=== PATIENT | female | born 1980 | race Caucasian/White ===

== ENCOUNTER 2017-12-18 11:46 | Emergency (ER) | payer MEDICAID ==
--- NOTE | 2017-12-18 12:03 | Emergency Department Record ---
History of Present Illness - General Chief complaint: complication Stated complaint: NEEDS LAB WORK Time Seen by Provider: 12/18/17 11:47 Source: Patient Mode of Arrival: Ambulatory Limitations: No limitations - History of Present Illness Initial comments: 37 yo female presents to the ED for a repeat HCG level. She is 7 weeks with her first OB intake appointment on . She has had light spotting since Sunday. No significant pain. She was seen at [facility] on 12/15. Her US demonstrated a SLIUP at 6w5d with HR 125. She is Rh positive. Her quant was 6405. She was instructed to have a repeat HCG level prior to her follow up. She does not have a PCP so she came to the ED. She was trichomonas positive and is being treated. MD Complaint: Vaginal bleeding -: Days(s) (4) Radiation: None Quality: Aching Consistency: Intermittent Improves with: None Worsens with: None Associated symptoms: Denies other symptoms Vaginal bleeding: Light - Related Data Home Medications Medication Instructions Recorded Confirmed Last Taken Cephalexin [Cephalexin] 500 mg PO BID 12/18/17 12/18/17 Unknown Pnv,Calcium 72/Iron/Folic Acid 1 tab PO DAILY 12/18/17 12/18/17 Unknown [Pnv Plus Multivit Tab] Allergies Allergy/AdvReac Type Severity Reaction Status Date / Time No Known Drug Allergies Allergy Verified 12/18/17 12:02 Review of Systems Constitutional: Denies: Chills, Fever, Malaise, Weakness Eyes: Denies: Eye discharge ENT: Denies: Congestion, Throat pain Respiratory: Denies: Cough Cardiovascular: Denies: Chest pain, Syncope Endocrine: Denies: Fatigue Gastrointestinal: Denies: Abdominal pain, Diarrhea, Nausea, Vomiting Genitourinary: Reports: As per HPI, Abnormal menses. Denies: Discharge, Dyspareunia, Dysuria, Frequency, Hematuria, Incontinence, Retention, Urgency Musculoskeletal: Denies: Arthralgia, Back pain, Neck pain Skin: Denies: Bruising, Change in color, Rash Neurological: Denies: Confusion, Headache Psychiatric: Denies: Anxiety Hematological/Lymphatic: Denies: Blood Clots, Easy bleeding, Easy bruising Past Medical History - SOCIAL HISTORY Smoking Status: Light tobacco smoker (<10/day) Drug Use Detail:: Marijuana - RESPIRATORY Hx Respiratory Disorders: No - CARDIOVASCULAR Hx Cardio Disorders: No - NEURO Hx Neuro Disorders: No - GI Hx GI Disorders: No - Hx Genitourinary Disorders: Yes Hx UTI: Yes - ENDOCRINE Hx Endocrine Disorders: No - MUSCULOSKELETAL Hx Musculoskeletal Disorders: No - PSYCH Hx Psych Problems: No - HEMATOLOGY/ONCOLOGY Hx Hematology/Oncology Disorders: No Physical Exam - General General Appearance: Alert, Oriented x3, Cooperative, No acute distress Limitations: No limitations - Head Head exam: Atraumatic, Normal inspection - Eye Eye exam: Normal appearance - ENT ENT exam: Normal exam Ear exam: Normal external inspection Nasal Exam: Normal inspection Mouth exam: Normal external inspection - Neck Neck exam: Normal inspection - Respiratory Respiratory exam: Normal lung sounds bilaterally. negative: Respiratory distress - Cardiovascular Cardiovascular Exam: Regular rate, Normal rhythm, Normal heart sounds - GI/Abdominal GI/Abdominal exam: Soft. negative: Distended, Guarding, Rebound, Rigid, Tenderness - Rectal Rectal exam: Deferred - exam: Deferred - Extremities Extremities exam: Normal inspection, Full ROM, Normal capillary refill. negative: Tenderness - Back Back exam: Denies: CVA tenderness (R), CVA tenderness (L) - Neurological Neurological exam: Alert, Oriented X3 - Psychiatric Psychiatric exam: Normal affect, Normal mood - Skin Skin exam: Dry, Intact, Normal color, Warm Course - Reevaluation(s) Reevaluation #1: [facility] was used to obtained [facility] records. See [facility] for details of those results She states she is here only to have a repeat HCG. She is otherwise doing well, very mild occasional spotting. She has follow up on . 12/18/17 12:02 The patient passed a clot in the toilet that appeared to be products of conception US was ordered I explained that given she had an IUP on 12/15 if none seen then likely this was a miscarriage. 12/18/17 13:28 Repeat quant is 4766 down from 6405 on 12/1512/18/17 13:33 US reviewed. No IUP Likely miscarriage given IUP on US 3 days prior and quant dropped to 4766 The pain and bleeding are mild at this time and controlled She was advised for follow up with her OB this week as scheduled. 12/18/17 13:58 Disposition Disposition: Discharge Clinical Impression: Miscarriage Disposition: Home, Self-Care Condition: (1) Good Instructions: Miscarriage (ED) Additional Instructions: Be seen immediately if worse, heavy bleeding or any new concerns Follow up with your test results and ultrasound Forms: Patient Portal Access Time of Disposition: 13:58 Quality - Quality Measures Quality Measures: N/A - Blood Pressure Screening Does Patient Have Any of the Following: No Blood Pressure Classification: Hypertensive Reading Systolic Measurement: 132 Diastolic Measurement: 95 Screening for High Blood Pressure: < Pre-Hypertensive BP, F/U Documented > [ G8950] Pre-Hypertensive Follow-up Interventions: Referral to alternative/primary care provider.
--- NOTE | 2017-12-20 07:29 | ULTRASOUND REPORT ---
EXAM: EMERGENCY PELVIC FIRST TRIMESTER OB ULTRASOUND HISTORY: SEVEN WEEKS , STARTED SPOTTING ON SUNDAY AND THEN PAIN AND CRAMPING THIS MORNING, CLOT IN TOILET TODAY. TECHNIQUE: Real-time ultrasound examination of the pelvis was performed utilizing transabdominal approach. The patient declined to undergo a transvaginal. Comparison: None. FINDINGS: TRANSABDOMINAL PELVIC ULTRASOUND: The uterus is somewhat poorly seen in this unprepped patient with no distended urinary bladder to act as a sonic window. The endometrial stripe is measured at about 1.3 cm. The uterus itself measures about 4.2 cm in AP x 4.7 cm in transverse diameters x 8.4 cm in length. No intrauterine fluid collection seen, and in particular, no recognizable intrauterine gestational sac, pole, yolk sac, or cardiac flicker identified within the uterus. Neither ovary confidently identified in the transabdominal approach. No adnexal mass seen and no free fluid evident. Findings presumably represent incomplete spontaneous given the history , although sonographic findings themselves are nonspecific. The lack of identification of an intrauterine gestational sac can also be seen in the presence of a very early IUP not yet sonographically visible, or ectopic . Consequently close clinical follow-up, perhaps with quantitative serial serum HCG determinations, is suggested. IMPRESSION: 1. LIMITED STUDY DESCRIBED ABOVE. 2. NO INTRAUTERINE IDENTIFIED. 3. NO ADNEXAL MASS OR FREE FLUID IDENTIFIED. THE OVARIES ARE NOT CLEARLY SEEN. JOB NUMBER: [id number] MTDD
== END 2017-12-18 14:11 | disposition home or self-care (01) ==
LOC: ER 11:46
DX: O03.9 Complete or unspecified spontaneous abortion without complication (principal)
CPT/HCPCS: 76801; 84702; 99283

== ENCOUNTER 2018-08-27 18:29 | Emergency (ER) | payer MEDICAID ==
--- NOTE | 2018-08-27 18:58 | Emergency Department Record ---
History of Present Illness - General Stated Complaint: SINUS/CHEST CONGESTION, UTI Time Seen by Provider: 08/27/18 18:51 Source: Patient Mode of Arrival: Ambulatory Limitations: No limitations - History of Present Illness Initial Comments: 38 yo female presents to ED for evaluation of non-productive cough symptoms for the past 6 weeks. Patient reports that she was treated with Mucinex (3 weeks ago) and Zithromax (2 weeks ago) that has not improved her symptoms. Patient denies fevers, chills, or recent illness however. Patient is a current smoke also. 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 Patient denies flank pain symptoms, nausea, or vomiting symptoms. MD Complaint: Cough Onset/Timin -: Week(s) Severity: Moderate Consistency: Constant Improves With: Nothing Worsens With: Nothing Associated Symptoms: Denies other symptoms Treatments Prior to Arrival: Antibiotics, "Cold medicine" - Related Data Home Medications Medication Instructions Recorded Confirmed Last Taken Duloxetine HCl [Cymbalta] 60 mg PO DAILY 08/27/18 08/27/18 08/27/18 Trazodone HCl 50 mg PO QHS 08/27/18 08/27/18 08/26/18 Previous Rx's Medication Instructions Recorded Albuterol Sulfate [Proair Hfa] 1 - 2 puff IH .EVERY 4-6 HOURS PRN 08/27/18 #1 inhaler Sulfamethoxazole/Trimethoprim 1 each PO BID #13 tablet 08/27/18 [Bactrim Ds Tablet] Allergies Allergy/AdvReac Type Severity Reaction Status Date / Time No Known Drug Allergies Allergy Verified 08/27/18 19:00 Review of Systems Constitutional: Denies: Chills, Fever, Malaise, Night sweats Eyes: Denies: Eye discharge, Eye pain ENT: Reports: Congestion. Denies: Ear pain, Epistaxis Respiratory: Reports: Cough, Wheezes. Denies: Dyspnea Cardiovascular: Denies: Chest pain, Dyspnea on exertion Endocrine: Denies: Fatigue, Heat or cold intolerance Gastrointestinal: Denies: Abdominal pain, Nausea, Vomiting Genitourinary: Reports: Frequency, Hematuria. Denies: Incontinence, Retention Musculoskeletal: Denies: Arthralgia, Back pain Skin: Denies: Bruising, Change in color Neurological: Denies: Abnormal gait, Confusion, Headache Psychiatric: Denies: Anxiety Hematological/Lymphatic: Denies: Anemia, Blood Clots Past Medical History - SOCIAL HISTORY Smoking Status: Light tobacco smoker (<10/day) Drug Use Detail:: Marijuana - RESPIRATORY Hx Respiratory Disorders: No - CARDIOVASCULAR Hx Cardio Disorders: No - NEURO Hx Neuro Disorders: No - GI Hx GI Disorders: No - Hx Genitourinary Disorders: Yes Hx UTI: Yes - ENDOCRINE Hx Endocrine Disorders: No - MUSCULOSKELETAL Hx Musculoskeletal Disorders: No - PSYCH Hx Psych Problems: No - HEMATOLOGY/ONCOLOGY Hx Hematology/Oncology Disorders: No Physical Exam - General General Appearance: Alert, Oriented x3, Cooperative, Mild distress Limitations: No limitations - Head Head exam: Atraumatic, Normocephalic, Normal inspection Head exam detail: negative: Abrasion, Contusion, Da Silva's sign, General tenderness, Hematoma, Laceration - Eye Eye exam: Normal appearance. negative: Conjunctival injection, Periorbital swelling, Periorbital tenderness, Scleral icterus - ENT Ear exam: negative: Auricular hematoma, Auricular trauma Nasal Exam: negative: Active bleeding, Discharge, Dried blood Mouth exam: negative: Drooling, Laceration, Muffled voice, Tongue elevation - Neck Neck exam: Normal inspection. negative: Meningismus, Tenderness - Respiratory Respiratory exam: Rhonchi, Wheezes. negative: Respiratory distress, Stridor - Cardiovascular Cardiovascular Exam: Regular rate, Normal rhythm, Normal heart sounds - GI/Abdominal GI/Abdominal exam: Soft. negative: Distended, Rebound, Rigid, Tenderness - Rectal Rectal exam: Deferred - exam: Deferred - Extremities Extremities exam: Normal inspection. negative: Calf tenderness, Pedal edema, Tenderness - Back Back exam: Denies: CVA tenderness (R), CVA tenderness (L) - Neurological Neurological exam: Alert, Normal gait, Oriented X3 - Psychiatric Psychiatric exam: Normal affect, Normal mood - Skin Skin exam: Normal color. negative: Abrasion Type of lesion: negative: abrasion Course Vital Signs 08/27/18 18:45 Temperature 98.3 F Pulse Rate [ 64 Pulse Ox Probe] Respiratory 18 Rate Blood Pressure 113/77 [Right Arm] Pulse Ox 100 - Reevaluation(s) Reevaluation #1: 08/27/18 19:11 UA reviewed: >50 WBCs 2+ Bacteria Trichomonas present Patient was updated on all results, will treat UTI with Bactrim as directed. Flagyl 2 grams PO given in ED to treat for trichomonas. Will initiate treatment for bronchitis with Prednisone and Albuterol as directed as well. Patient has follo-up appointment in 1 week with her PCP as well, and appears stable for discharge at this time. Disposition Disposition: Discharge Clinical Impression: Trichomonas infection Chronic bronchitis Qualifiers: Chronic bronchitis type: unspecified Qualified Code(s): J42 - Unspecified chronic bronchitis UTI (urinary tract infection) Qualifiers: Urinary tract infection type: acute cystitis Hematuria presence: without hematuria Qualified Code(s): N30.00 - Acute cystitis without hematuria Disposition: Home, Self-Care Condition: (2) Stable Instructions: Chronic Bronchitis (ED) Additional Instructions: Return to ED if your symptoms worsen or if you have any concerns. Prednisone, albuterol as directed. Follow-up with your family doctor in 3-5 days as directed. Prescriptions: Albuterol Sulfate [Proair Hfa] 1 - 2 puff IH .EVERY 4-6 HOURS PRN #1 inhaler PRN Reason: Difficulty In Breathing Sulfamethoxazole/Trimethoprim [Bactrim Ds Tablet] 1 each PO BID #13 tablet Forms: Patient Portal Access Time of Disposition: 18:57 Quality - Quality Measures Quality Measures: N/A - Blood Pressure Screening Does Patient Have Any of the Following: No Blood Pressure Classification: Normal BP Reading Systolic Measurement: 113 Diastolic Measurement: 77 Screening for High Blood Pressure: < Normal BP, F/U Not Required > [G8783]
[2018-08-27 18:59] LABS: URINE APPEARANCE SL CLOUDY; URINE BILIRUBIN NEGATIVE (NEGATIVE); URINE BLOOD TRACE-L (NEGATIVE); URINE COLOR YELLOW; URINE GLUCOSE (UA) NEGATIVE (NEGATIVE); URINE KETONE NEGATIVE (NEGATIVE); URINE LEUKOCYTE ESTERASE LARGE (NEGATIVE); URINE NITRITE NEGATIVE (NEGATIVE); URINE PROTEIN NEGATIVE (NEGATIVE); URINE UROBILINOGEN 0.2 E.U./dL (0.20 - 1.00)
[2018-08-27] MEDS ORDERED: TMP/SMZ 160MG/800MG TAB PO ONE (19:07)
[2018-08-27 19:08] LABS: URINE BACTERIA 2+; URINE TRICHOMONAS MODERATE; URINE WBC >50 (0-2/hpf)
[2018-08-27] MEDS ORDERED: METRONIDAZOLE 250 MG TABLET PO ONE (19:11)
== END 2018-08-27 19:20 | disposition home or self-care (01) ==
LOC: ER 18:29
DX: J42 Unspecified chronic bronchitis (principal); A59.03 Trichomonal cystitis and urethritis; F17.210 Nicotine dependence, cigarettes, uncomplicated
CPT/HCPCS: 99283 ×2; 81001; J3490

== ENCOUNTER 2019-02-18 16:59 | Observation (INO) | payer MEDICAID ==
[2019-02-18] MEDS ORDERED: KETOROLAC 30 MG/ML VIAL IVP ONE (17:16)
[2019-02-18] MEDS ORDERED: MORPHINE SULFATE 10MG/1ML **1ML VIAL IVP ONE ×2 (17:16→19:38)
[2019-02-18] MEDS ORDERED: ONDANSETRON HCL IV 4 MG/2 ML VIAL IVP ONE (17:16)
[2019-02-18] MEDS ORDERED: 0.9 % SODIUM CHLORIDE 1,000 ML BAG IV ONE (17:16)
--- NOTE | 2019-02-18 17:17 | Emergency Department Record ---
History of Present Illness - General Chief Complaint: Back Pain/Injury Stated Complaint: FLANK PAIN/BOTH SIDES Time Seen by Provider: 02/18/19 17:04 Source: Patient Mode of Arrival: Ambulatory Limitations: No limitations - History of Present Illness Initial Comments: 38 yo female presents with abdominal and back pain. The onset was last evening. She first developed abdominal pain then bilateral flank pain. She has had nausea as well. Some urinary frequency. No blood in the urine but she is just finishing her menstrual cycle. She has had many recurrent urinary tract infections. She had urologic surgery in 1987. She still sees a urologist once yearly. NO fever. MD Complaint: Back pain Onset/Timin -: Days(s) Similar Symptoms Previously: No Place: Home Radiation: Abdomen Severity scale (1-10): 10 Quality: Sharp Consistency: Constant Improves With: None Worsens With: Other Context: Unknown Associated Symptoms: Denies other symptoms - Related Data Home Medications Medication Instructions Recorded Confirmed Last Taken Buspirone HCl [Buspar] 10 mg PO DAILY 02/18/19 02/18/19 Unknown Mirtazapine 30 mg PO DAILY 02/18/19 02/18/19 Unknown Allergies Allergy/AdvReac Type Severity Reaction Status Date / Time No Known Drug Allergies Allergy Verified 08/27/18 19:00 Travel Screening - Travel/Exposure Within Last 30 Days Have you traveled within the last 30 days?: No Review of Systems Constitutional: Denies: Chills, Fever, Malaise, Weakness Eyes: Denies: Eye discharge ENT: Denies: Congestion, Throat pain Respiratory: Denies: Cough, Dyspnea Cardiovascular: Denies: Chest pain, Palpitations, Syncope Endocrine: Denies: Fatigue, Polydipsia, Polyuria Gastrointestinal: Reports: As per HPI, Abdominal pain, Nausea. Denies: Diarrhea, Vomiting Genitourinary: Reports: Dysuria, Frequency. Denies: Hematuria Musculoskeletal: Reports: As per HPI, Back pain Skin: Denies: Bruising, Rash Neurological: Denies: Headache, Numbness, Weakness Psychiatric: Denies: Anxiety Hematological/Lymphatic: Denies: Easy bleeding, Easy bruising Past Medical History - SOCIAL HISTORY Smoking Status: Light tobacco smoker (<10/day) - RESPIRATORY Hx Respiratory Disorders: No - CARDIOVASCULAR Hx Cardio Disorders: No - NEURO Hx Neuro Disorders: No - GI Hx GI Disorders: No - Hx Genitourinary Disorders: Yes Hx UTI: Yes - ENDOCRINE Hx Endocrine Disorders: No - MUSCULOSKELETAL Hx Musculoskeletal Disorders: No - PSYCH Hx Psych Problems: No - HEMATOLOGY/ONCOLOGY Hx Hematology/Oncology Disorders: No Family Medical History Any Significant Family History?: No Physical Exam - General General Appearance: Alert, Oriented x3, Cooperative, No acute distress Limitations: No limitations - Head Head exam: Atraumatic, Normal inspection - Eye Eye exam: Normal appearance. negative: Conjunctival injection - ENT ENT exam: Normal exam, Mucous membranes moist Ear exam: Normal external inspection Nasal Exam: Normal inspection Mouth exam: Normal external inspection - Neck Neck exam: Normal inspection. negative: Lymphadenopathy - Respiratory Respiratory exam: Normal lung sounds bilaterally. negative: Respiratory distress - Cardiovascular Cardiovascular Exam: Regular rate, Normal rhythm, Normal heart sounds - GI/Abdominal GI/Abdominal exam: Soft, Tenderness. negative: Distended, Guarding, Rebound, Rigid - Rectal Rectal exam: Deferred - exam: Deferred - Extremities Extremities exam: Normal inspection. negative: Tenderness - Back Back exam: Reports: CVA tenderness (R), CVA tenderness (L) - Neurological Neurological exam: Alert, Oriented X3 - Psychiatric Psychiatric exam: Normal affect, Normal mood - Skin Skin exam: Dry, Intact, Normal color, Warm Course Vital Signs 02/18/19 17:03 Temperature 99.0 F Pulse Rate 94 H Respiratory 20 Rate Blood Pressure 138/87 Pulse Ox 96 - Reevaluation(s) Reevaluation #1: 02/18/19 17:49 CBC demonstrates a WBC of 20 02/18/19 17:49 HCG is negative 02/18/19 18:17 The CMP was reviewed. No acute changes The US was reviewed and is consistent with a urinary tract infection CT was ordered given the back pain, elevated WBC count and UA consistent with infection Medical Decision Making - Lab Data Result diagrams: 02/18/19 17:25 02/18/19 17:25 Disposition Disposition: Admit Clinical Impression: Pyelonephritis Disposition: Still a Patient at [facility] Decision to Admit: Admit from ER Decision to Admit Date: 02/18/19 Decision to Admit Time: 19:06 Condition: (2) Stable Forms: Patient Portal Access Time of Disposition: 19:06 Quality - Quality Measures Quality Measures: N/A - Blood Pressure Screening Does Patient Have Any of the Following: No Blood Pressure Classification: Pre-Hypertensive BP Reading Systolic Measurement: 138 Diastolic Measurement: 87 Screening for High Blood Pressure: < Pre-Hypertensive BP, F/U Documented > [G8950] Pre-Hypertensive Follow-up Interventions: Referral to alternative/primary care provider.
[2019-02-18 17:40] LABS: HEMATOCRIT 37.2 % (35.0-47.0); HEMOGLOBIN 12.6 gm/dl (11.6-16.0); MEAN CELL VOLUME 89.9 fl (81-97); MEAN CORPUSCULAR HEMOGLOBIN 30.4 pg (27-33); MEAN CORPUSCULAR HGB CONC 33.9 g/dl (32-36); MEAN PLATELET VOLUME 8.2 fl (7.4-10.4); PLATELET COUNT 289 K/uL (130-400); RED BLOOD COUNT 4.14 M/uL (3.80-5.40); RED CELL DISTRIBUTION WIDTH 14.6 % (11.5-14.5)
[2019-02-18 17:42] LABS: URINE APPEARANCE CLEAR; URINE BILIRUBIN NEGATIVE (NEGATIVE); URINE BLOOD SMALL (NEGATIVE); URINE COLOR YELLOW; URINE GLUCOSE (UA) NEGATIVE (NEGATIVE); URINE KETONE NEGATIVE (NEGATIVE); URINE LEUKOCYTE ESTERASE SMALL (NEGATIVE); URINE NITRITE NEGATIVE (NEGATIVE); URINE PROTEIN NEGATIVE (NEGATIVE)
[2019-02-18 17:45] LABS: HCG,QUALITATIVE URINE NEGATIVE (NEGATIVE)
[2019-02-18 17:48] LABS: WHITE BLOOD COUNT W/O DIFF 20.3 K/uL (4.2-12.2)
[2019-02-18 17:50] LABS: BLOOD UREA NITROGEN 8 mg/dL (6-20)
[2019-02-18 17:51] LABS: CREATININE 0.7 mg/dL (0.5-0.9); EST GLOMERULAR FILTRATION RATE > 60 mL/min; LIPASE 19 U/L (13-60); TOTAL PROTEIN 7.5 g/dL (6.6-8.7)
[2019-02-18 17:53] LABS: GLUCOSE,RANDOM 107 mg/dL (74-109)
[2019-02-18 17:56] LABS: ALB/GLOB RATIO 1.3 (1.1-1.8); ALBUMIN 4.3 g/dL (4.0-5.0); ALKALINE PHOSPHATASE 83 U/L (35-104); ALT/SGPT 20 U/L (<33); AST/SGOT 26 U/L (10.0-35.0)
[2019-02-18 17:58] LABS: URINE SQUAMOUS EPITHELIAL CELL 0 - 2 /hpf; URINE WBC 36 - 50 (0-2/hpf)
[2019-02-18 17:59] LABS: URINE BACTERIA 1+
[2019-02-18] MEDS ORDERED: CEFTRIAXONE 1GM/50ML BAG 1 GM/50 ML BAG IVPB ONE (18:11)
[2019-02-18 18:13] LABS: ABSOLUTE NEUTROPHIL COUNT 15.86
[2019-02-18] MEDS ORDERED: 0.9 % SODIUM CHLORIDE 1000ML 1,000 ML IV PRN (20:57)
[2019-02-18] MEDS: MIRTAZAPINE 15 MG TABLET PO SCH (22:48)
[2019-02-18] MEDS: MORPHINE SULFATE 10MG/1ML **1ML VIAL IVP PRN (23:01)
[2019-02-19] MEDS: MORPHINE SULFATE 10MG/1ML **1ML VIAL IVP PRN ×5 (04:42→22:57)
[2019-02-19] MEDS: CEFTRIAXONE 1GM/50ML BAG 1 GM/50 ML BAG IVPB SCH ×2 (05:09→17:23)
[2019-02-19] MEDS: KETOROLAC 30 MG/ML VIAL IVP PRN ×2 (06:28→20:19)
[2019-02-19 07:14] LABS: ABSOLUTE NEUTROPHIL COUNT 9.02; BASO % 0.2 % (0-6); EOS % 0.8 % (0-6); GRAN % 73.2 % (47-80); HEMATOCRIT 31.6 % (35.0-47.0); HEMOGLOBIN 10.5 gm/dl (11.6-16.0); MEAN CELL VOLUME 91.1 fl (81-97); MEAN CORPUSCULAR HGB CONC 33.2 g/dl (32-36); MEAN PLATELET VOLUME 8.7 fl (7.4-10.4); MONO % 8.8 % (0-9); PLATELET COUNT 226 K/uL (130-400); RED BLOOD COUNT 3.47 M/uL (3.80-5.40); RED CELL DISTRIBUTION WIDTH 14.7 % (11.5-14.5); WHITE BLOOD COUNT W/O DIFF 12.3 K/uL (4.2-12.2)
[2019-02-19 07:22] LABS: MEAN CORPUSCULAR HEMOGLOBIN 30.2 pg (27-33)
--- NOTE | 2019-02-19 07:33 | CT SCAN REPORT ---
EXAM: CT SCAN OF THE ABDOMEN AND PELVIS HISTORY: PATIENT HAS GENERALIZED ABDOMINAL PAIN. TECHNIQUE: Serial axial CT scan of the of the abdomen and pelvis was performed at 2.5 mm intervals from the dome of the diaphragm down to the pubic symphysis without the use of intravenous or oral contrast. Comparison: CT scan of the abdomen and pelvis dated 09/19/16 is provided. FINDINGS: The lung windows of the lung bases demonstrate no CT evidence of a focal infiltrate or pleural effusion. The visualized heart size and contour is within normal limits. The liver, spleen, pancreas, bilateral adrenal glands, and gallbladder are unremarkable. The bilateral kidneys demonstrate no CT evidence of hydronephrosis or hydroureter. No renal or ureteral calculi are noted. The contour and caliber of the noncontrasted abdominal aorta is within normal limits. There is no CT evidence of retroperitoneal, pelvic, or inguinal lymphadenopathy. There is no CT evidence of free intraperitoneal air. The urinary bladder is unremarkable. The uterus is unremarkable. There is no CT evidence of free intraperitoneal fluid. Bone windows demonstrate no CT evidence of a fracture or dislocation of the visualized osseous structures. IMPRESSION: NO CT EVIDENCE OF AN ACUTE INTRAABDOMINAL PROCESS. JOB NUMBER: [id number] [facility]
--- NOTE | 2019-02-19 09:08 | History & Physical ---
History of Present Illness - Date of Service Date of Service for History & Physical: 02/19/19 - History of Present Illness Admitting Diagnosis: Pyelonephritis, abdominal pain History of Present Illness: 38 yo female presents for suspected UTI with h/o freq UTI. Pt has h/o of UTI req inpt treatment 07/11 but states most of the time she is able to treat with PO Cipro. 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 Since then chronic UTI. Usually presents with lower abd pain and some back pain that starts slow and progresses over several days but this time she woke up yesterday with abd and back pain that was substantial. Denies vaginal discharge or odor. UA shows small amt leuk and blood, no nitrates- culture pending CT shows no acute abd process WBC 20.3, Hgb 12.6, Hct 37.2, Plt 289 Na 136, K 3.8, BUN 8, Cr 0.7, GFR >60, Glucose 107, lipase 17 Pt started on Rocephine 1gm BID and 1L bolus with 125/hr IVF. Given morphine 5mg IVP and zofran 4mg IVP for pain and nausea. Pt takes methadone from [facility], treating opioid addition for approx 7 yrs. 02/19/19 Pt resting in bed, mild distress, tolerated CLD but still remains painful after morphine. BS x4 but TTP generalized area. DDx PID, adding Azo, if no changes in pain after that, IV abx and fluids will consider pelvic exam. pt denies h/o PID and states recent PAP 12/10 normal. WBC 12.3, Hgb 10.2, Hct 31.6 Plt 226. Changes in H-H may be from dilution from IVF, will repeat in the Am. PCP Tammy Travel Screening - Travel/Exposure Within Last 30 Days Have you traveled within the last 30 days?: No - Travel/Exposure Within Last Year Have you traveled outside the [place] in the last year?: No - Additonal Travel Details Have you been exposed to anyone with a communicable illness?: No - Travel Symptoms Symptom Screening: None Review of Systems Constitutional: Denies: Chills, Fever, Malaise, Weakness Eyes: Denies: Eye discharge ENT: Denies: Congestion, Throat pain Respiratory: Denies: Cough, Dyspnea Cardiovascular: Denies: Chest pain, Palpitations, Syncope Endocrine: Denies: Fatigue, Polydipsia, Polyuria Gastrointestinal: Reports: As per HPI, Abdominal pain, Nausea. Denies: Diarrhea, Vomiting Genitourinary: Reports: Dysuria, Frequency. Denies: Hematuria Musculoskeletal: Reports: As per HPI, Back pain Skin: Denies: Bruising, Rash Neurological: Denies: Headache, Numbness, Weakness Psychiatric: Denies: Anxiety Hematological/Lymphatic: Denies: Easy bleeding, Easy bruising Past Medical History - SOCIAL HISTORY Smoking Status: Light tobacco smoker (<10/day) Alcohol Use: None Drug Use: None - RESPIRATORY Hx Respiratory Disorders: No - CARDIOVASCULAR Hx Cardio Disorders: No - NEURO Hx Neuro Disorders: No - GI Hx GI Disorders: No - Hx Genitourinary Disorders: Yes Hx UTI: Yes - ENDOCRINE Hx Endocrine Disorders: No - MUSCULOSKELETAL Hx Musculoskeletal Disorders: No - PSYCH Hx Psych Problems: No - HEMATOLOGY/ONCOLOGY Hx Hematology/Oncology Disorders: No Family Medical History Any Significant Family History?: No H&P Meds/Allergies - Allergies Allergies: Allergies Allergy/AdvReac Type Severity Reaction Status Date / Time No Known Drug Allergies Allergy Verified 08/27/18 19:00 - Home Medications Home Medications Medication Instructions Recorded Confirmed Last Taken Buspirone HCl [Buspar] 10 mg PO DAILY 02/18/19 02/18/19 Unknown Mirtazapine 30 mg PO DAILY 02/18/19 02/18/19 Unknown - Active Medications Active Medications: Current Medications Buspirone HCl (Buspar) 10 mg PO DAILY [facility] Duloxetine HCl (Cymbalta) 60 mg PO DAILY [facility] Sodium Chloride () 1,000 mls @ 125 mls/hr IV .Q8H PRN PRN Reason: LARGE VOLUME IV CEFTRIAXONE 1GM/50ML BAG (Ceftriaxone 1 Gm-D5w Bag) 1 gm in 50 mls @ 100 mls/hr IVPB Q12H [facility] Last Infusion: 02/19/19 05:45 Dose: Infused Documented by: Ketorolac Tromethamine (Toradol) 15 mg IVP Q8H PRN PRN Reason: PAIN - MILD (1-4) Last Admin: 02/19/19 06:28 Dose: 15 mg Documented by: Mirtazapine (Remeron) 30 mg PO 2100 [facility] Last Admin: 02/18/19 22:48 Dose: 30 mg Documented by: Morphine Sulfate (Morphine Sulfate) 5 mg IVP Q4H PRN PRN Reason: PAIN - MILD (1-4) Last Admin: 02/19/19 04:42 Dose: 5 mg Documented by: Non-Formulary Medication (Methadone Hcl [Methadone Hcl]) 84 mg PO DAILY [facility] Ondansetron HCl (Zofran) 4 mg IVP Q4H PRN PRN Reason: NAUSEA Phenazopyridine HCl (Azo Urinary Pain Relief) 190 mg PO TID [facility] Physical Exam - Vital Signs Vital Signs: Vital Signs - Last 24 Hrs Temp Pulse Pulse Resp BP BP Pulse Ox 02/19/19 08:00 97.5 F L 72 18 106/71 100 02/18/19 21:50 97.9 F 68 18 106/75 97 02/18/19 20:51 70 16 107/63 96 02/18/19 20:08 69 18 102/65 97 02/18/19 19:07 70 20 105/64 98 02/18/19 17:03 99.0 F 94 H 20 138/87 96 - General General Appearance: Alert, Oriented x3, Cooperative, No acute distress Limitations: No limitations - Head Head exam: Atraumatic, Normal inspection - Eye Eye exam: Normal appearance. negative: Conjunctival injection - ENT ENT exam: Normal exam, Mucous membranes moist Ear exam: Normal external inspection Nasal Exam: Normal inspection Mouth exam: Normal external inspection - Neck Neck exam: Normal inspection. negative: Lymphadenopathy - Respiratory Respiratory exam: Normal lung sounds bilaterally. negative: Respiratory distress - Cardiovascular Cardiovascular Exam: Regular rate, Normal rhythm, Normal heart sounds - GI/Abdominal GI/Abdominal exam: Soft, Tenderness. negative: Distended, Guarding, Rebound, Rigid - Rectal Rectal exam: Deferred - exam: Deferred - Extremities Extremities exam: Normal inspection. negative: Tenderness - Back Back exam: Reports: CVA tenderness (R), CVA tenderness (L) - Neurological Neurological exam: Alert, Oriented X3 - Psychiatric Psychiatric exam: Normal affect, Normal mood - Skin Skin exam: Dry, Intact, Normal color, Warm Results - Labs Result Diagrams: 02/19/19 06:26 02/18/19 17:25 Labs Last 24 Hours: Laboratory Results - last 24 hr 05/28/19 05/28/19 05/28/19 17:25 17:25 17:35 WBC 20.3 H* RBC 4.14 Hgb 12.6 Hct 37.2 MCV 89.9 MCH 30.4 MCHC 33.9 RDW 14.6 H Plt Count 289 MPV 8.2 Gran % Neutrophils % 78.0 Band Neutrophils % 1.0 Lymphocytes % Monocytes % Eosinophils % Not Reportable Basophils % Not Reportable Absolute Neutrophils 15.86 Lymphocytes 14.0 L Monocytes 7.0 Sodium 136 Potassium 3.8 Chloride 99 Carbon Dioxide 26.0 Anion Gap 11.0 BUN 8 Creatinine 0.7 Estimated GFR > 60 Random Glucose 107 Calcium 9.4 Total Bilirubin 0.70 AST 26 ALT 20 Alkaline Phosphatase 83 Total Protein 7.5 Albumin 4.3 Globulin 3.2 Albumin/Globulin Ratio 1.3 Lipase 19 Urine Color Yellow Urine Appearance Clear Urine pH 8.5 Ur Specific [place] 1.010 Urine Protein Negative Urine Glucose (UA) Negative Urine Ketones Negative Urine Blood Small H Urine Nitrite Negative Urine Bilirubin Negative Urine Urobilinogen 1.0 Ur Leukocyte Esterase Small H Urine RBC 7 - 10 Urine WBC 36 - 50 U Non-Squamous Epi Cells 0 - 2 Urine Bacteria 1+ Urine HCG, Qual Negative 02/19/19 06:26 WBC 12.3 H RBC 3.47 L Hgb 10.5 L Hct 31.6 L MCV 91.1 MCH 30.2 MCHC 33.2 RDW 14.7 H Plt Count 226 MPV 8.7 Gran % 73.2 Neutrophils % Band Neutrophils % Lymphocytes % 17.0 Monocytes % 8.8 Eosinophils % 0.8 Basophils % 0.2 Absolute Neutrophils 9.02 Lymphocytes Monocytes Sodium Potassium Chloride Carbon Dioxide Anion Gap BUN Creatinine Estimated GFR Random Glucose Calcium Total Bilirubin AST ALT Alkaline Phosphatase Total Protein Albumin Globulin Albumin/Globulin Ratio Lipase Urine Color Urine Appearance Urine pH Ur Specific [place] Urine Protein Urine Glucose (UA) Urine Ketones Urine Blood Urine Nitrite Urine Bilirubin Urine Urobilinogen Ur Leukocyte Esterase Urine RBC Urine WBC U Non-Squamous Epi Cells Urine Bacteria Urine HCG, Qual VTE H&P Assessment - Risk for VTE Risk for VTE: Yes Risk Level: Low Risk Assessment Date: 02/19/19 Risk Assessment Time: 11:10 VTE Orders Placed or Will Be Placed: Yes Plan - Detailed Diagnosis and Plan (1) Pyelonephritis Current Visit: Yes Status: Acute Base Code: N12 - TUBULO-INTERSTITIAL NEPHRITIS, NOT SPCF ACUTE OR CHRONIC Comment: 02/19/19 -WBC 20.3->12.3 -continue IV ABX, morphine 5mg, ankit tylenol, toradol and azo for pain, zofran for nausea, advance diet as tolerated -IVF changed to [id number] 09/25 NS @ 125 as pt is on CLD r/t nausea (2) Full code status Current Visit: Yes Status: Acute Base Code: Z78.9 - OTHER SPECIFIED HEALTH STATUS Comment: 02/19/19 full code (3) DVT prophylaxis Current Visit: Yes Status: Acute Base Code: Z29.9 - ENCOUNTER FOR PROPHYLACTIC MEASURES, UNSPECIFIED Comment: 02/19/19 -mild risk, start lovenox 40mg SQ tomorrow if no d/c in the AM -scds on while in bed
[2019-02-19] MEDS: DULOXETINE HCL 30 MG CAPSULE.DR PO SCH (09:29)
[2019-02-19] MEDS: BUSPIRONE 5 MG TABLET PO SCH ×2 (09:29→22:56)
[2019-02-19] MEDS: PHENAZOPYRIDINE HCL 95 MG TABLET PO SCH ×3 (09:29→22:56)
[2019-02-19] MEDS ORDERED: METHADONE HCL PO SCH (10:00)
[2019-02-19] MEDS: ONDANSETRON HCL IV 4 MG/2 ML VIAL IVP PRN ×2 (13:03→20:22)
[2019-02-19] MEDS: POTASSIUM CHLORIDE/D5-0.45NACL 20 MEQ/1,000 ML BAG IV SCH ×2 (13:08→20:27)
[2019-02-19] MEDS: ACETAMINOPHEN 500 MG TABLET PO SCH ×2 (13:36→23:01)
[2019-02-19] MEDS: MIRTAZAPINE 15 MG TABLET PO SCH (23:00)
[2019-02-20] MEDS: MORPHINE SULFATE 10MG/1ML **1ML VIAL IVP PRN ×2 (03:13→07:54)
[2019-02-20] MEDS: POTASSIUM CHLORIDE/D5-0.45NACL 20 MEQ/1,000 ML BAG IV SCH ×2 (03:16→17:14)
[2019-02-20] MEDS: CEFTRIAXONE 1GM/50ML BAG 1 GM/50 ML BAG IVPB SCH (06:17)
[2019-02-20] MEDS: ACETAMINOPHEN 500 MG TABLET PO SCH ×2 (06:20→16:35)
[2019-02-20 06:24] LABS: ABSOLUTE NEUTROPHIL COUNT 6.89; BASO % 0.2 % (0-6); EOS % 2.5 % (0-6); GRAN % 72.7 % (47-80); HEMATOCRIT 29.1 % (35.0-47.0); HEMOGLOBIN 9.5 gm/dl (11.6-16.0); LYMPH % 13.8 % (16-45); MEAN CELL VOLUME 91.2 fl (81-97); MEAN CORPUSCULAR HGB CONC 32.6 g/dl (32-36); MEAN PLATELET VOLUME 8.5 fl (7.4-10.4); MONO % 10.8 % (0-9); PLATELET COUNT 203 K/uL (130-400); RED BLOOD COUNT 3.19 M/uL (3.80-5.40); RED CELL DISTRIBUTION WIDTH 14.5 % (11.5-14.5); WHITE BLOOD COUNT W/O DIFF 9.5 K/uL (4.2-12.2)
[2019-02-20 06:25] LABS: MEAN CORPUSCULAR HEMOGLOBIN 29.7 pg (27-33)
[2019-02-20 06:37] LABS: BLOOD UREA NITROGEN 7 mg/dL (6-20); CREATININE 0.6 mg/dL (0.5-0.9); EST GLOMERULAR FILTRATION RATE > 60 mL/min; GLUCOSE,RANDOM 108 mg/dL (74-109)
[2019-02-20] MEDS ORDERED: ENOXAPARIN 40 MG/0.4 ML SYR SQ SCH (10:00)
[2019-02-20] MEDS: PHENAZOPYRIDINE HCL 95 MG TABLET PO SCH ×2 (10:51→16:35)
[2019-02-20] MEDS: BUSPIRONE 5 MG TABLET PO SCH (10:52)
[2019-02-20] MEDS: DULOXETINE HCL 30 MG CAPSULE.DR PO SCH (10:52)
[2019-02-20] MEDS: KETOROLAC 30 MG/ML VIAL IVP PRN (11:38)
[2019-02-20] MEDS: ONDANSETRON HCL IV 4 MG/2 ML VIAL IVP PRN (11:41)
--- NOTE | 2019-02-20 15:49 | Discharge Summary ---
Providers Discharge Summary Date: 02/20/19 Date of admission: 02/18/19 20:47 Expected Date of Discharge: 02/20/19 Attending physician: TERRY RANGEL Primary care physician: Alvarado Physical Exam - Vital Signs Vital Signs: Vital Signs - Last 24 Hrs Temp Pulse Resp BP Pulse Ox 02/20/19 12:00 98.1 F 72 16 123/79 98 02/20/19 09:00 63 18 02/20/19 08:00 97 F L 74 18 111/69 96 02/19/19 21:00 16 02/19/19 20:00 98.7 F 70 18 123/78 99 02/19/19 16:00 97.3 F L 69 18 102/63 97 - General General Appearance: Alert, Oriented x3, Cooperative, No acute distress Limitations: No limitations - Head Head exam: Atraumatic, Normal inspection - Eye Eye exam: Normal appearance. negative: Conjunctival injection - ENT ENT exam: Normal exam, Mucous membranes moist Ear exam: Normal external inspection Nasal Exam: Normal inspection Mouth exam: Normal external inspection - Neck Neck exam: Normal inspection. negative: Lymphadenopathy - Respiratory Respiratory exam: Normal lung sounds bilaterally. negative: Respiratory distress - Cardiovascular Cardiovascular Exam: Regular rate, Normal rhythm, Normal heart sounds - GI/Abdominal GI/Abdominal exam: Soft, Tenderness. negative: Distended, Guarding, Rebound, Rigid - Rectal Rectal exam: Deferred - exam: Deferred - Extremities Extremities exam: Normal inspection. negative: Tenderness - Back Back exam: Reports: CVA tenderness (R), CVA tenderness (L) - Neurological Neurological exam: Alert, Oriented X3 - Psychiatric Psychiatric exam: Normal affect, Normal mood - Skin Skin exam: Dry, Intact, Normal color, Warm Hospitalization - Hospitalization Admission Diagnosis: Pyelonephritis, abdominal pain - Problem List/Discharge Diagnosis (1) Pyelonephritis Status: Acute Base Code: N12 - TUBULO-INTERSTITIAL NEPHRITIS, NOT SPCF ACUTE OR CHRONIC Comment: 02/20/19 -WBC 20.3->12.3->9.5 -home with PO abx, tylenol, motrin, azo 02/19/19 -WBC 20.3->12.3 -continue IV ABX, morphine 5mg, ankit tylenol, toradol and azo for pain, zofran for nausea, advance diet as tolerated -IVF changed to [id number] 09/25 NS @ 125 as pt is on CLD r/t nausea (2) Full code status Status: Acute Base Code: Z78.9 - OTHER SPECIFIED HEALTH STATUS Comment: 02/20/19 full code (3) DVT prophylaxis Status: Acute Base Code: Z29.9 - ENCOUNTER FOR PROPHYLACTIC MEASURES, UNSPECIFIED Comment: 02/20/19 -mild risk, start lovenox 40mg SQ tomorrow if no d/c in the AM -scds on while in bed - Hospitalization Course Disposition: Home, Self-Care Hospital Course: 38 yo female presents for suspected UTI with h/o freq UTI. Pt has h/o of UTI req inpt treatment 07/11 but states most of the time she is able to treat with PO Cipro. 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 Since then chronic UTI. Usually presents with lower abd pain and some back pain that starts slow and progresses over several days but this time she woke up yesterday with abd and back pain that was substantial. Denies vaginal discharge or odor. UA shows small amt leuk and blood, no nitrates- culture pending CT shows no acute abd process WBC 20.3, Hgb 12.6, Hct 37.2, Plt 289 Na 136, K 3.8, BUN 8, Cr 0.7, GFR >60, Glucose 107, lipase 17 Pt started on Rocephine 1gm BID and 1L bolus with 125/hr IVF. Given morphine 5mg IVP and zofran 4mg IVP for pain and nausea. Pt takes methadone from [facility], treating opioid addition for approx 7 yrs. 02/19/19 Pt resting in bed, mild distress, tolerated CLD but still remains painful after morphine. BS x4 but TTP generalized area. DDx PID, adding Azo, if no changes in pain after that, IV abx and fluids will consider pelvic exam. pt denies h/o PID and states recent PAP 12/10 normal. WBC 12.3, Hgb 10.2, Hct 31.6 Plt 226. Changes in H-H may be from dilution from IVF, will repeat in the Am. PCP Tammy Procedures: Imaging and X-Rays 02/18/19 17:48 ABDOMEN/PELVIS WO CONTRAST [CT] Stat Abnormal Labs: Abnormal Lab Results 02/18/19 02/18/19 02/19/19 Range/Units 17:25 17:35 06:26 WBC 20.3 H* 12.3 H (4.2-12.2) K/uL RBC 3.47 L (3.80-5.40) M/uL Hgb 10.5 L (11.6-16.0) gm/dl Hct 31.6 L (35.0-47.0) % RDW 14.6 H 14.7 H (11.5-14.5) % Lymphocytes % (16-45) % Monocytes % (0-9) % Lymphocytes 14.0 L (16-45) % Chloride (98-107) mmol/L Anion Gap (7-16) Calcium (8.6-10.0) mg/dL Urine Blood Small H (NEGATIVE) Ur Leukocyte Esterase Small H (NEGATIVE) 02/20/19 02/20/19 Range/Units 06:17 06:17 WBC (4.2-12.2) K/uL RBC 3.19 L (3.80-5.40) M/uL Hgb 9.5 L (11.6-16.0) gm/dl Hct 29.1 L (35.0-47.0) % RDW (11.5-14.5) % Lymphocytes % 13.8 L (16-45) % Monocytes % 10.8 H (0-9) % Lymphocytes (16-45) % Chloride 109 H (98-107) mmol/L Anion Gap 6.0 L (7-16) Calcium 7.6 L (8.6-10.0) mg/dL Urine Blood (NEGATIVE) Ur Leukocyte Esterase (NEGATIVE) Condition at Discharge: (2) Stable Discharge Medications - Discharge Medications Prescriptions: Phenazopyridine HCl [Azo Urinary Pain Relief] 190 mg PO TID 4 Days #12 tablet Cefdinir 300 mg PO NOW 9 Days #18 capsule Ibuprofen [Motrin 600Mg] 600 mg PO Q8H 10 Days #30 tablet Home Medications: Ambulatory Orders Methadone HCl 84 mg PO DAILY 09/19/16 [Last Taken 08/27/18] Duloxetine HCl [Cymbalta] 60 mg PO DAILY 08/27/18 [Last Taken 08/27/18] Buspirone HCl [Buspar] 10 mg PO DAILY 02/18/19 [Last Taken Unknown] Mirtazapine 30 mg PO DAILY 02/18/19 [Last Taken Unknown] Acetaminophen [Tylenol 500Mg Tab] 1,000 mg PO Q8HR tablet 02/20/19 [Last Taken Unknown] Cefdinir 300 mg PO NOW 9 Days #18 capsule 02/20/19 [Last Taken Unknown] Ibuprofen [Motrin 600Mg] 600 mg PO Q8H 10 Days #30 tablet 02/20/19 [Last Taken Unknown] Phenazopyridine HCl [Azo Urinary Pain Relief] 190 mg PO TID 4 Days #12 tablet 02/20/19 [Last Taken Unknown] Discharge Plan - Discharge Instructions Diet at Discharge: Advance to Usual Diet Instructions: Urinary Tract Infection in Women (DC) Quality Measures - Quality Measures Quality Measures: Documentation of Current Medications in Medical Record, Screening for High Blood Pressure and F/U Documented - Current Medications Quality Measure: Measure #130: Documentation of Current Medications Documentation of Current Medications: <Current Medications Documented/Reviewed> [G8427] - Blood Pressure Screening Quality Measure: Screening for High Blood Pressure and Follow-Up Documented Does Patient Have Any of the Following: No Blood Pressure Classification: Pre-Hypertensive BP Reading Systolic Measurement: 138 Diastolic Measurement: 87 Screening for High Blood Pressure: < Pre-Hypertensive BP, F/U Documented > [G8950] Pre-Hypertensive Follow-up Interventions: Referral to alternative/primary care provider. - Elder Abuse Suspicion Index EASI Reference Information: Frederick DASILVA, Shen C, Polo D, Dara Guevara.Development and validation of a tool to assist physicians identification of elder abuse: The Elder Abuse Suspicion Index (EASI ). Journal of Elder Abuse and Neglect, 2008; 20 (3): 276-300.
[2019-02-20] MEDS ORDERED: MORPHINE SULFATE 15 MG TABLET.ER PO ONE (16:15)
== END 2019-02-20 17:09 | disposition home or self-care (01) ==
LOC: ER 16:59 → MEDSURG 20:47
PROVIDERS: ADMIT Internal Medicine; ATTEND Internal Medicine
DX: N12 Tubulo-interstitial nephritis, not specified as acute or chronic (principal); M54.5 Low back pain; R30.9 Painful micturition, unspecified; F17.210 Nicotine dependence, cigarettes, uncomplicated
CPT/HCPCS: 74176; 80048; 80053; 81001; 81025; 83690; 85025; 85027; 96365; 96375; 96376; 99217; 99220; 99285; J0696; J1650; J1885; J2270; J2405; J3480; J7030